=== PATIENT | female | born 1990 | race Two or more races ===

== ENCOUNTER 2021-08-18 02:02 | Emergency (ER) | payer MEDICAID, OTHER ==
[~2021-08-18] VITALS: Ht 167.6 cm; Wt 72.6 kg
[2021-08-18] MEDS ORDERED: LABETALOL HCL 5 MG/ML 4ML SYRINGE IV ONE (03:00)
[2021-08-18 03:21] LABS: Basophils # (auto) 0.1 10 ^3/uL (0-0.2); Eosinophils # (auto) 0.1 10 ^3/uL (0-0.8); Mean Corpuscular Hemoglobin 24.3 pg (28.0-32.0); Monocytes % (auto) 7.9 % (0.0-12.0); Nucleated Red Blood Cells % 0.1 %
[2021-08-18 03:23] LABS: Basophils % (auto) 0.9 % (0.0-2.0); Eosinophils % (auto) 0.7 % (0.0-7.0); Hemoglobin 12.5 g/dL (12.2-16.2); Lymphocytes # (auto) 2.2 10 ^3/uL (0.4-5.4); Lymphocytes % (auto) 22.6 % (10.0-50.0); Mean Corpuscular Hgb Conc. 32.1 g/dL (32.0-36.0); Mean Corpuscular Volume 75.6 fL (80.0-100.0); Monocytes # (auto) 0.8 10 ^3/uL (0-1.3); Neutrophils # (auto) 6.5 10 ^3/uL (1.6-8.6); Neutrophils % (auto) 67.9 % (37.0-80.0); Red Blood Cells 5.15 10^6/uL (4.0-5.20); Red Cell Distribution Width 15.3 % (11.8-14.3); White Blood Cell 9.6 10^3/uL (4.4-10.8)
[2021-08-18] MEDS ORDERED: LABETALOL HCL 5 MG/ML ML 20ML VIAL IV ONE (03:31)
[2021-08-18 03:51] LABS: INR 0.98 (0.9-1.15); Partial Thromboplastin Time 26.5 sec (23.6-33.0)
[2021-08-18 04:00] LABS: Alanine Aminotransferase 27 U/L (13-56); Anion Gap 6 (5-15); Blood Alcohol < 3.0 mg/dL (0-5); Blood Urea Nitrogen 7 mg/dL (7-18); Calcium 8.2 mg/dL (8.5-10.1); Carbon Dioxide 28 mmol/L (21-32); Chloride 101 mmol/L (98-107); Glucose 106 mg/dL (74-106); Potassium 3.1 mmol/L (3.5-5.1); Sodium 135 mmol/L (136-145)
[2021-08-18 04:05] LABS: Alkaline Phosphatase 89 U/L (45-117); Aspartate Aminotransferase 23 U/L (15-37); BUN/Creatinine Ratio 10.6; Bilirubin, Total 0.4 mg/dL (0.2-1.0); GFR African American 134 mL/min; GFR Non-African American 111 mL/min; Total Protein 8.8 g/dL (6.4-8.2)
[2021-08-18 04:07] LABS: Salicylate < 1.7 mg/dL (2.8-20.0)
[2021-08-18 04:45] LABS: Acetaminophen < 2.0 ug/mL (10-30)
[2021-08-18] MEDS ORDERED: ASPirin 81 mg TAB PO ONE (06:45)
[2021-08-18] MEDS ORDERED: IOHEXOL 350 MG/ML 100ML IJ ONE (08:07)
[2021-08-18] MEDS ORDERED: LISINOPRIL 10 MG TAB PO ONE (10:00)
[2021-08-18] MEDS ORDERED: ACETAMINOPHEN 325 MG TAB PO ONE (10:00)
[2021-08-18] MEDS ORDERED: LISI20TA28 PO (10:14)
[2021-08-18] MEDS ORDERED: cloNIDine HCL 0.1 MG TAB ONE (11:02)
[2021-08-18] MEDS ORDERED: cloNIDine HCL 0.1 MG TAB PO ONE (11:15)
[2021-08-18 11:35] VITALS: BP 133/95
== END 2021-08-18 12:08 | disposition home or self-care (01) ==
LOC: ER 02:02 → EDBD 02:02 → ER 12:08
DX: I16.0 Hypertensive urgency (principal); R07.89 Other chest pain; R79.1 Abnormal coagulation profile
CPT/HCPCS: 36415; 71045; 71275; 80053; 80320; 80329; 83735; 83880; 84443; 84484; 85025; 85379; 85610; 85730; 93005; 96374; 99285; Q9967